=== PATIENT | female | born 1960 | race Caucasian/White ===

== ENCOUNTER 2021-08-08 14:37 | Outpatient (CLI) | payer OTHER | END 2021-08-08 14:38 | disposition home or self-care (01) | LOC: BICCT 14:37 | PROVIDERS: ATTEND Family Medicine | DX: I10 Essential (primary) hypertension (principal) | CPT/HCPCS: 75571 ==

== ENCOUNTER 2022-09-20 08:33 | Outpatient (CLI) | payer BC ==
[2022-09-20] MEDS ORDERED: Iopamidol 370 76% 100 ML VIAL ONE (12:51)
== END 2022-09-20 08:34 | disposition home or self-care (01) ==
LOC: CT 08:33
PROVIDERS: ATTEND Family Medicine
DX: E27.8 Other specified disorders of adrenal gland (principal)
CPT/HCPCS: 74170; 82565; Q9967

== ENCOUNTER 2024-07-30 14:18 | Outpatient (CLI) | payer BC | END 2024-07-30 14:19 | disposition home or self-care (01) | LOC: SCSRAD 14:18 | PROVIDERS: ATTEND Nurse Practitioner Family | DX: R05.1 Acute cough (principal) | CPT/HCPCS: 71046 ==